=== PATIENT | female | born 1990 ===

== ENCOUNTER 2017-10-30 00:27 | Emergency (ER) | payer SELFPAY ==
[2017-10-30 00:42] VITALS: BP 117/91; PULSE 85; RESP 18; TEMP 98.1; O2SAT 99
--- NOTE | 2017-10-30 02:09 | ED PDOC ---
HPI: Female Pain Time Seen by Provider: 10/30/17 00:43 Chief Complaint (Nursing): Female Genitourinary Chief Complaint (Provider): Dysuria, abdominal pain History Per: Patient History/Exam Limitations: no limitations Onset/Duration Of Symptoms: Days (x 2) Current Symptoms Are (Timing): Still Present Additional Complaint(s): 27 year old female with a past medical history of asthma and recurrent UTIs, presents to the emergency department complaining of difficulty urinating, associated with left lower quadrant pain for 2 days. Yesterday she went to see PMD and was prescribed an antibiotic, which she attempted to fill but pharmacy was closed. Pain worsened today, prompting her to come to the ER. Patient describes urine as cloudy. No back pain, fevers, nausea, vomiting, or diarrhea. No medications taken for pain relief prior to arrival. PMD: Dr. Jose Maloney Past Medical History Reviewed: Historical Data, Nursing Documentation, Vital Signs Vital Signs: Last Vital Signs Temp 98.1 F 10/30/17 00:39 Pulse 85 10/30/17 00:39 Resp 18 10/30/17 00:39 BP 117/91 H 10/30/17 00:39 Pulse Ox 99 10/30/17 00:39 - Medical History PMH: Asthma Other PMH: Frequent UTIs - Surgical History Surgical History: No Surg Hx - Family History Family History: States: Unknown Family Hx - Social History Current smoker - smoking cessation education provided: No Alcohol: Social Drugs: Denies - Home Medications Home Medications: Ambulatory Orders Medication Instructions Recorded predniSONE [predniSONE Tab] 60 mg PO DAILY #9 tab 10/11/16 Ciprofloxacin HCl [Cipro] 500 mg PO BID #14 tablet 10/30/17 - Allergies Allergies/Adverse Reactions: Allergies Allergy/AdvReac Type Severity Reaction Status Date / Time No Known Allergies Allergy Verified 10/30/17 00:34 Review of Systems ROS Statement: Except As Marked, All Systems Reviewed And Found Negative Constitutional: Negative for: Fever Gastrointestinal: Positive for: Abdominal Pain. Negative for: Nausea, Vomiting , Diarrhea Genitourinary Female: Positive for: Dysuria Musculoskeletal: Negative for: Back Pain Physical Exam - Reviewed Nursing Documentation Reviewed: Yes Vital Signs Reviewed: Yes - Physical Exam Appears: Positive for: Non-toxic, No Acute Distress Head Exam: Positive for: ATRAUMATIC, NORMAL INSPECTION, NORMOCEPHALIC Skin: Positive for: Normal Color, Warm, Dry Eye Exam: Positive for: EOMI, Normal appearance, PERRL Neck: Positive for: Normal, Painless ROM Cardiovascular/Chest: Positive for: Regular Rate, Rhythm. Negative for: Murmur Respiratory: Positive for: Normal Breath Sounds. Negative for: Accessory Muscle Use, Respiratory Distress Gastrointestinal/Abdominal: Positive for: Soft, Tenderness (at left lower quadrant) Back: Positive for: Normal Inspection. Negative for: L CVA Tenderness, R CVA Tenderness Neurologic/Psych: Positive for: Alert, Oriented (x3). Negative for: Motor/ Sensory Deficits - Laboratory Results Result Diagrams: 10/30/17 02:00 10/30/17 02:00 - ECG O2 Sat by Pulse Oximetry: 99 (RA) Pulse Ox Interpretation: Normal Medical Decision Making Medical Decision Making: Initial Impression: UTI Time: 01:41 Initial Plan: --ED Urine --ED Urine dipstick --BMP --CBC w/ differential --Urine culture --Blood culture --Toradol 15 mg IVP --Rocephin 1 gm IVPB --Reevaluation Scribe Attestation: Documented by Erica Wahl, acting as a scribe for Paolo Bailey MD Provider Scribe Attestation: All medical record entries made by the Scribe were at my direction and personally dictated by me. I have reviewed the chart and agree that the record accurately reflects my personal performance of the history, physical exam, medical decision making, and the department course for this patient. I have also personally directed, reviewed, and agree with the discharge instructions and disposition. Disposition - Clinical Impression Clinical Impression: Urinary tract infection - Patient ED Disposition Is Patient to be Admitted: No Doctor Will See Patient In The: Office Counseled Patient/Family Regarding: Studies Performed, Diagnosis, Need For Followup - Disposition Referrals: Jose Maloney MD [Primary Care Provider] - Disposition: Routine/Home Disposition Time: 03:02 Condition: GOOD Additional Instructions: Take your medications as instructed. Follow up with your PCP in 2-3 days. Prescriptions: Ciprofloxacin HCl [Cipro] 500 mg PO BID #14 tablet Instructions: Urinary Tract Infection in Women (ED)
[2017-10-30 02:13] LABS: BASO # 0.1 K/uL (0.0-0.2); BASO % 0.6 % (0.0-2.0); EOS # 0.2 K/uL (0.0-0.7); EOS % 1.3 % (0.0-4.0); HEMOGLOBIN 13.8 g/dL (12.0-16.0); LYMPH # 2.5 K/uL (1.0-4.3); LYMPH % 17.9 % (20.0-40.0); MEAN CELL VOLUME 90.9 fl (81.0-99.0); MEAN CORPUSCULAR HEMOGLOBIN 29.5 pg (27.0-31.0); MEAN CORPUSCULAR HGB CONC 32.5 g/dL (33.0-37.0); MEAN PLATELET VOLUME 7.5 fl (7.2-11.7); MONO # 0.9 K/uL (0.0-0.8); MONO % 6.8 % (0.0-10.0); NEUT # 10.1 K/uL (1.8-7.0); NEUT % 73.4 % (50.0-75.0); RBC 4.66 Mil/uL (3.80-5.20); RED CELL DISTRIBUTION WIDTH 13.8 % (11.5-14.5); WHITE BLOOD COUNT 13.7 K/uL (4.8-10.8)
[2017-10-30 02:21] LABS: BLOOD UREA NITROGEN 12 mg/dl (7-17); CALCIUM 9.6 mg/dL (8.4-10.2); GFR AFRICAN-AMERICAN > 60; GFR NON-AFRICAN AMERICAN > 60
== END 2017-10-30 03:09 | disposition home or self-care (01) ==
LOC: H.ER 00:27
DX: N39.0 Urinary tract infection, site not specified (principal); J45.909 Unspecified asthma, uncomplicated
CPT/HCPCS: 80048; 81025; 85025; 87040; 87086; 87181; 96365; 96375; 99283; J0696; J1885